=== PATIENT | male | born 1980 | race Caucasian/White ===

== ENCOUNTER 2022-08-09 08:17 | Outpatient (CLI) | payer OTHER, SELFPAY ==
[2022-08-09 13:57] LABS: Chloride* 101 mmol/L (96-114); Potassium* 4.8 mmol/L (3.6-5.1); Sodium* 135 mmol/L (135-149)
[2022-08-09 14:00] LABS: Blood Urea Nitrogen* 14 mg/dL (5-24); Carbon Dioxide* 27 mmol/L (20-32); Cholesterol* 199 mg/dL (90-199); Creatinine* 1.1 mg/dL (0.5-1.5); Estimated Glomerular Filt Rate 85 ml/min; Glucose* 107 mg/dL (60-115)
[2022-08-09 14:01] LABS: Calcium* 9.3 mg/dL (8.4-10.6); HDL Cholesterol* 30 mg/dL (>=40); LDL Cholesterol Calculated 66 mg/dL (<100)
[2022-08-09 14:03] LABS: Triglycerides* 516 mg/dL (40-149)
== END 2022-08-09 08:18 | disposition home or self-care (01) ==
PROVIDERS: PCP Family Medicine; Visit Provider Family Medicine
DX: Z00.00 Encounter for general adult medical examination without abnormal findings (principal); E78.5 Hyperlipidemia, unspecified; E88.81 Metabolic syndrome and other insulin resistance; Z13.1 Encounter for screening for diabetes mellitus; Z13.89 Encounter for screening for other disorder
CPT/HCPCS: 80048; 80061